=== PATIENT | female | born 1965 | race Caucasian/White ===

== ENCOUNTER 2016-10-29 14:49 | Emergency (ER) | payer OTHER ==
[2016-10-29 15:31] LABS: BASO # 0.2 K/mm3 (0.0-0.2); EOS # 0.4 K/mm3 (0.0-0.50); EOS % 4.6 % (0.0-3.0); LARGE UNSTAINED CELL # 0.1 K/mm3 (0.0-0.4); LARGE UNSTAINED CELL % 1.6 % (0.0-4.0); LYMPH # 2.4 K/mm3 (1.5-4.5); LYMPH % 29.7 % (24.0-44.0); MEAN CORPUSCULAR HEMOGLOBIN 31.2 pg (27.0-33.0); MEAN CORPUSCULAR HGB CONC 32.5 g/dl (32.0-36.5); MONO # 0.4 K/mm3 (0.0-0.8); NEUTROPHILS # 4.3 K/mm3 (1.8-7.7); NEUTROPHILS % 57.1 % (36.0-66.0); PLATELET COUNT, AUTOMATED 221 k/mm3 (150-450); RED CELL DISTRIBUTION WIDTH 13.3 % (11.5-14.5); WHITE BLOOD COUNT 7.6 K/mm3 (4.0-10.0)
[2016-10-29] MEDS ORDERED: ASPIRIN 81 MG CHEW TABLET As Ordered ONE (15:35)
[2016-10-29 16:00] LABS: ANION GAP 8 MEQ/L (8-16); BLOOD UREA NITROGEN 16 MG/DL (7-18); CALCIUM LEVEL 8.5 MG/DL (8.5-10.1); CARBON DIOXIDE LEVEL 23 MEQ/L (21-32); CHLORIDE LEVEL 113 MEQ/L (98-107); CREATININE FOR GFR 0.96 MG/DL (0.55-1.02); GLOMERULAR FILTRATION RATE > 60.0 (>58); GLUCOSE, FASTING 90 MG/DL (70-105); PHOSPHORUS LEVEL 2.7 MG/DL (2.5-4.9); SODIUM LEVEL 144 MEQ/L (136-145)
--- NOTE | 2016-10-29 17:08 | REP ---
Portable chest, single AP view, the patient upright: There are no comparisons. The lung mcnamara are clear. Cardiac size is normal. The hali, mediastinum, and bony thorax are unremarkable. Impression: Essentially negative portable chest. Signed by Blanco Ramirez MD 10/29/2016 04:59 P
--- NOTE | 2016-10-29 21:57 | EDDOCDS ---
Physician Documentation [facility] Name: Cecy Ramos Age: 51 yrs Sex: Female : 1965 Arrival Date: 10/29/2016 Time: 14:49 Bed 4 Private MD: Magdiel Bacon Disposition: 10/29/16 21:46 Discharged to Home/Self Care. Impression: Palpitations. - Condition is Stable. - Medication Reconciliation, Local Pharmacy Hours form. - Follow up: Magdiel Bacon; When: Call to arrange an appointment; Reason: Recheck today's complaints. - Problem is chronic. - Symptoms have improved. Historical: - Allergies: no known allergies; - Home Meds: 1. aspirin 325 mg Oral tab 1 tab PRN for pain (Last dose: 10/28/2016 23:00) 2. Cartia XT 180 mg Oral cp24 1 cap once daily (Last dose: 10/29/2016 13:30) - PMHx: Heart Murmur; tachycardia; - PSHx: laproscopy; - Social history: Smoking status: Patient states was never smoker of tobacco. No barriers to communication noted, The patient speaks fluent Spanish. - Family history: Not pertinent. - : The pt / caregiver states he / she is not on anticoagulants. Home medication list is obtained from the patient. - Exposure Risk Screening:: nova scot[place] christopher last night. 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 10 in. (177.80 cm) (R); Pain 8/10; 15:13 BP 125 / 58 (auto/); ld5 15:13 Pulse 90 MON; Pulse Ox 99% ; ld5 15:28 BP 122 / 58 (auto/); js13 15:28 Pulse 92 MON; Resp 16; Pulse Ox 97% on R/A; js13 15:34 Temp 97.6(O); ar3 15:43 BP 117 / 61 (auto/); js13 15:43 Pulse 96 MON; Resp 16; Pulse Ox 96% on R/A; js13 15:58 BP 132 / 62 (auto/); js13 15:58 Pulse 90 MON; Resp 16; Pulse Ox 97% on R/A; js13 16:13 BP 120 / 76 (auto/); js13 16:13 Pulse 88 MON; Resp 16; Pulse Ox 96% on R/A; js13 16:28 BP 120 / 58 (auto/); js13 16:28 Pulse 90 MON; Resp 16; Pulse Ox 96% on R/A; js13 16:43 BP 120 / 59 (auto/); js13 16:43 Pulse 84 MON; Resp 16; Pulse Ox 96% on R/A; js13 16:58 BP 112 / 67 (auto/); js13 16:58 Pulse 90 MON; Resp 16; Pulse Ox 99% on R/A; js13 17:13 BP 106 / 67 (auto/); js13 17:13 Pulse 90 MON; Resp 16; Pulse Ox 100% on R/A; js13 17:28 BP 117 / 76 (auto/); js13 17:28 Pulse 86 MON; Resp 16; Pulse Ox 98% on R/A; js13 17:43 BP 113 / 57 (auto/); js13 17:43 Pulse 84 MON; Resp 16; Pulse Ox 96% on R/A; js13 17:58 BP 120 / 67 (auto/); js13 17:58 Pulse 84 MON; Resp 16; Pulse Ox 98% on R/A; js13 19:58 BP 125 / 74 (auto/); jo3 19:58 Pulse 76 MON; Pulse Ox 96% ; jo3 20:13 BP 129 / 65 (auto/); jo3 20:13 Pulse 74 MON; Pulse Ox 95% ; jo3 20:28 BP 129 / 69 (auto/); jo3 20:28 Pulse 76 MON; Pulse Ox 95% ; jo3 20:43 BP 129 / 62 (auto/); jo3 20:43 Pulse 74 MON; Pulse Ox 97% ; jo3 20:58 BP 121 / 58 (auto/); jo3 20:58 Pulse 78 MON; Pulse Ox 96% ; jo3 21:13 BP 128 / 70 (auto/); mcp 21:13 Pulse 74 MON; Pulse Ox 97% ; mcp 21:28 BP 124 / 69 (auto/); mcp 21:28 Pulse 72 MON; Pulse Ox 97% ; mcp 21:43 BP 125 / 70 (auto/); mcp 21:43 Pulse 76 MON; Pulse Ox 96% ; mcp 21:53 BP 126 / 75; Pulse 85; Resp 18; Temp 99.1(TE); Pulse Ox 99% on R/A; Pain 1/10; macie 14:51 Body Mass Index 31.57 (99.79 kg, 177.80 cm) mt4 MDM: 14:52 ECG WITH READING ER PHYS+CARDIAG ordered. EDMS 15:00 Seismograph Observer/Pulse Ox/q 30 min VS ordered. fg 15:00 IV Saline Lock ordered. fg 15:00 Rhythm Strip to chart ordered. fg 15:00 Undress patient appropriately for examination ordered. fg 15:00 Aspirin 324 mg PO once ordered. fg 15:01 B-Type Natiuretic Peptide Ordered. EDMS 15:01 Basic Metabolic Profile Ordered. EDMS 15:01 CBC with Diff Ordered. EDMS 15:01 Cardiac Injury Profile Ordered. EDMS 15:01 Troponin Ordered. EDMS 15:02 portable chest Ordered. EDMS 15:07 Oral Temp ordered. br1 15:23 Repeat EKG (put time details section) ordered. br1 15:30 Repeat EKG (put time details section) complete. ar3 15:32 ECG WITH READING ER PHYS ordered. EDMS 15:32 FT4&TSH PANEL Ordered. EDMS 15:32 MAGNESIUM LEVEL Ordered. EDMS 15:32 PHOSPHOROUS LEVEL Ordered. EDMS 16:02 Financial registration complete. gjb 16:03 [facility] Payment Agreement was scanned into [employer] and attached to record. gjb 18:19 Basic Metabolic Profile Reviewed. br1 18:19 CBC with Diff Reviewed. br1 18:19 FT4&TSH PANEL Reviewed. br1 18:19 B-Type Natiuretic Peptide Reviewed. br1 18:19 Cardiac Injury Profile Reviewed. br1 18:19 Troponin Reviewed. br1 18:19 MAGNESIUM LEVEL Reviewed. br1 18:19 PHOSPHOROUS LEVEL Reviewed. br1 18:19 portable chest Reviewed. br1 18:21 Repeat EKG (put time details section) ordered. br1 18:21 Redraw CIP &Troponin (put time in details section) ordered. br1 18:30 Redraw CIP &Troponin (put time in details section) complete. ar3 18:30 Repeat EKG (put time details section) complete. ar3 18:31 ECG WITH READING ER PHYS ordered. EDMS 18:32 CARDIAC MARKER PANEL Ordered. EDMS Administered Medications: 15:23 CANCELLED (Other Intervention Used): NS 0.9% 500 ml IV at bolus once br1 15:35 Drug: Aspirin 324 mg [aspirin 81 mg chewable tablet (4 tabs)] Route: PO; js13 Signatures: Dispatcher [employer] Arlene Lackey, RN RN [facility] Bhupinder Ennis MD MD br1 Nyasia Pacheco, RESEARCH ARCHAEOLOGIST RESEARCH ARCHAEOLOGIST ar3 Keila Cali,RN RN js13 Tae Antonio, DO cs11 Tina Boone MD MD fg Nathan MichaelsRN RN lea3 Aixa Dunn The chart was reviewed and I authenticate all verbal orders and agree with the evaluation and treatment provided.Corrections: (The following items were deleted from the chart) 15:23 15:00 NS 0.9% 500 ml IV at bolus once ordered. fg br1 15:32 15:24 MAGNESIUM LEVEL+LAB ordered. EDMS EDMS 15:32 15:24 PHOSPHOROUS LEVEL+LAB ordered. EDMS EDMS 15:32 15:24 FT4&TSH PANEL+LAB ordered. EDMS EDMS Attachments: 16:03 [facility] Payment Agreement marbella MTDD
--- NOTE | 2016-10-29 21:58 | EDDOCDS ---
Nurse's Notes [facility] Name: Cecy Ramos Age: 51 yrs Sex: Female : 1965 Arrival Date: 10/29/2016 Time: 14:49 Bed 4 Private MD: Magdiel Bacon Diagnosis: Palpitations Presentation: 10/29 14:55 Presenting complaint: Patient states: SOB with CP palpitations that started suddenly jf3 today at approx 1315. Chest tightness with heaviness for a couple days now. Aspirin was not taken prior to arrival. Adult Sepsis Screening: The patient does not have new or worsening altered mentation. Patient has a respiratory rate of greater than or equal to 22 (1 point). Systolic blood pressure is greater than 100. Patient has a qSOFA score of 1- Negative Sepsis Screen. Suicide/Homicide risk assessment- the patient denies having any suicidal and/or homicidal ideations and does not present with any other emotional, behavioral or mental health complaints. Status: Patient is not a director of cloud services or dependent. Transition of care: patient was not received from another setting of care. 14:55 Acuity: DONOVAN Level 2 jf3 14:55 Method Of Arrival: Walkin/Carried/Asstd jf3 Triage Assessment: 15:01 General: Appears uncomfortable, Behavior is cooperative. Pain: Location: mid-sternal jf3 area Pain currently is 4 out of 10 on a pain scale. Pt Declines HIV testing. The patient is triaged at the bedside. See Assessment in Nurses Notes section of ED record. Cardiovascular: Chest pain is described as mild, radiates Does not radiate. episodes are intermittent began 2 hours prior to arrival. 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 aspirin 325 mg Oral tab 1 tab PRN for pain (Last dose: 10/28/2016 23:00) 2. Cartia XT 180 mg Oral cp24 1 cap once daily (Last dose: 10/29/2016 13:30) - PMHx: Heart Murmur; tachycardia; - PSHx: laproscopy; - Social history: Smoking status: Patient states was never smoker of tobacco. No barriers to communication noted, The patient speaks fluent Senegalese. - Family history: Not pertinent. - : The pt / caregiver states he / she is not on anticoagulants. Home medication list is obtained from the patient. - Exposure Risk Screening:: [place] christopher last night. Screenin:01 Screening information is obtained from the patient. Fall risk: No risks identified. js13 Assistance ADL's: requires no assistance with activities of daily living. Abuse/DV Screen: The patient / caregiver reports he/she is: not in a situation that causes fear, pain or injury. Nutritional screening: No deficits noted. Advance Directives: There is no active DNR order. home support is adequate. Assessment: 16:01 General: Appears in no apparent distress, Behavior is appropriate for age, cooperative. js13 Pain: Denies pain. Neurological: Level of Consciousness is awake, alert. Cardiovascular: Rhythm is sinus rhythm Chest pain is denied. Respiratory: Airway is patent Respiratory effort is even, unlabored, Respiratory pattern is regular, symmetrical. Derm: Skin is pink, warm & dry. 16:52 General: Appears in no apparent distress, Behavior is appropriate for age, cooperative. js13 Pain: Denies pain. Neurological: Level of Consciousness is awake, alert. Cardiovascular: Rhythm is sinus rhythm Chest pain is described as mild, Pain is 3 out of 10 on a pain scale. Respiratory: Airway is patent Respiratory effort is even, unlabored, Respiratory pattern is regular, symmetrical. Derm: Skin is pink, warm & dry. 17:48 Adult Sepsis Screening: The patient does not have new or worsening altered mentation. js13 Patient's respiratory rate is less than 22. Systolic blood pressure is greater than 100. Patient has a qSOFA score of 0- Negative Sepsis Screen. General: Appears in no apparent distress, Behavior is appropriate for age, cooperative. Pain: Denies pain. Neurological: Level of Consciousness is awake, alert. Cardiovascular: Rhythm is sinus rhythm Chest pain is described as mild, Pain is 3 out of 10 on a pain scale. Respiratory: No deficits noted. Airway is patent Respiratory effort is even, unlabored, Respiratory pattern is regular, symmetrical. Derm: Skin is pink, warm & dry. 18:09 General: Appears in no apparent distress, Behavior is appropriate for age, cooperative. js13 Pain: Denies pain. Neurological: Level of Consciousness is awake, alert. Cardiovascular: Rhythm is sinus rhythm Chest pain is denied. Respiratory: No deficits noted. Airway is patent Respiratory effort is even, unlabored, Respiratory pattern is regular, symmetrical. Derm: Skin is pink, warm & dry. 19:00 General: Appears in no apparent distress, comfortable, Behavior is appropriate for age, jo3 cooperative, pleasant. Neurological: No deficits noted. Level of Consciousness is awake, alert, Oriented to person, place, time. 21:00 General: Appears in no apparent distress, Behavior is cooperative. Neurological: No mcp deficits noted. Respiratory: Airway is patent Respiratory effort is even, unlabored. Derm: Skin is pink, warm & dry. 21:54 General: Appears in no apparent distress, comfortable, Behavior is cooperative. Pain: mcp Location: chest Pain currently is 2 out of 10 on a pain scale. Neurological: No deficits noted. Cardiovascular: Rhythm is sinus rhythm No ectopy. Respiratory: Airway is patent Respiratory effort is even, unlabored. Derm: Skin is pink, warm & dry. Vital Signs: 14:51 BP 116 / 68; Pulse 168 RA; Resp 22 S; Pulse Ox 100% on R/A; Weight 99.79 kg (R); Height mt4 5 ft. 10 in. (177.80 cm) (R); Pain 8/10; 15:13 BP 125 / 58 (auto/); ld5 15:13 Pulse 90 MON; Pulse Ox 99% ; ld5 15:28 BP 122 / 58 (auto/); js13 15:28 Pulse 92 MON; Resp 16; Pulse Ox 97% on R/A; js13 15:34 Temp 97.6(O); ar3 15:43 BP 117 / 61 (auto/); js13 15:43 Pulse 96 MON; Resp 16; Pulse Ox 96% on R/A; js13 15:58 BP 132 / 62 (auto/); js13 15:58 Pulse 90 MON; Resp 16; Pulse Ox 97% on R/A; js13 16:13 BP 120 / 76 (auto/); js13 16:13 Pulse 88 MON; Resp 16; Pulse Ox 96% on R/A; js13 16:28 BP 120 / 58 (auto/); js13 16:28 Pulse 90 MON; Resp 16; Pulse Ox 96% on R/A; js13 16:43 BP 120 / 59 (auto/); js13 16:43 Pulse 84 MON; Resp 16; Pulse Ox 96% on R/A; js13 16:58 BP 112 / 67 (auto/); js13 16:58 Pulse 90 MON; Resp 16; Pulse Ox 99% on R/A; js13 17:13 BP 106 / 67 (auto/); js13 17:13 Pulse 90 MON; Resp 16; Pulse Ox 100% on R/A; js13 17:28 BP 117 / 76 (auto/); js13 17:28 Pulse 86 MON; Resp 16; Pulse Ox 98% on R/A; js13 17:43 BP 113 / 57 (auto/); js13 17:43 Pulse 84 MON; Resp 16; Pulse Ox 96% on R/A; js13 17:58 BP 120 / 67 (auto/); js13 17:58 Pulse 84 MON; Resp 16; Pulse Ox 98% on R/A; js13 19:58 BP 125 / 74 (auto/); jo3 19:58 Pulse 76 MON; Pulse Ox 96% ; jo3 20:13 BP 129 / 65 (auto/); jo3 20:13 Pulse 74 MON; Pulse Ox 95% ; jo3 20:28 BP 129 / 69 (auto/); jo3 20:28 Pulse 76 MON; Pulse Ox 95% ; jo3 20:43 BP 129 / 62 (auto/); jo3 20:43 Pulse 74 MON; Pulse Ox 97% ; jo3 20:58 BP 121 / 58 (auto/); jo3 20:58 Pulse 78 MON; Pulse Ox 96% ; jo3 21:13 BP 128 / 70 (auto/); mcp 21:13 Pulse 74 MON; Pulse Ox 97% ; mcp 21:28 BP 124 / 69 (auto/); mcp 21:28 Pulse 72 MON; Pulse Ox 97% ; mcp 21:43 BP 125 / 70 (auto/); mcp 21:43 Pulse 76 MON; Pulse Ox 96% ; mcp 21:53 BP 126 / 75; Pulse 85; Resp 18; Temp 99.1(TE); Pulse Ox 99% on R/A; Pain 1/10; macie 14:51 Body Mass Index 31.57 (99.79 kg, 177.80 cm) mt4 Vitals: 14:51 Log In Time: October 29, 2016 at 14:49. RN notified that patient meets Red Flag mt4 criteria. ED Course: 14:50 Patient visited by Whitney Thomason. mt4 14:50 Patient moved to Waiting mt4 14:51 Magdiel Bacon is Private Physician. mt4 14:52 Keila Cali,RN is Primary Nurse. jc4 14:52 Patient moved to 4 jc4 14:57 Triage Initiated jf3 14:57 EKG done. (by ED staff). Reviewed by Tina Boone MD. rs6 15:05 Bhupinder Ennis MD is Attending Physician. br1 15:08 Patient visited by Kimberli Tobin PCA. rs6 15:23 Patient visited by Bhupinder Ennis MD. br1 15:28 Patient visited by Tahira Longoria RN. ld5 15:28 B-Type Natiuretic Peptide Sent. ld5 15:28 Basic Metabolic Profile Sent. ld5 15:28 CBC with Diff Sent. ld5 15:28 Cardiac Injury Profile Sent. ld5 15:28 Troponin Sent. ld5 15:28 Inserted saline lock: 20 gauge in right antecubital area and blood collected. The ld5 patient tolerated the procedure well. Labs drawn. (by ED staff). Sent per order to lab. 15:33 Patient visited by Nyasia Pacheco PCA. ar3 15:33 EKG done. (by ED staff). Reviewed by Bhupinder Ennis MD. ar3 15:35 Patient visited by Nyasia Pacheco PCA. ar3 15:35 PHOSPHOROUS LEVEL Sent. js13 15:35 MAGNESIUM LEVEL Sent. js13 15:35 FT4&TSH PANEL Sent. js13 16:01 The patient / caregiver is instructed regarding the plan of care and ED course. Placed js13 in gown. Bed in low position. Call light in reach. Side rails up X2. hospital monitor on. Pulse ox on. NIBP on. 16:01 No procedures done that require assistance. js13 16:02 Patient visited by Keila Cali RN. js13 16:03 [facility] [place] Agreement was scanned into [employer] and attached to record. b 16:10 Patient name changed from Cecy\S\Fanta\S\Weiskotten\S\ to Cecy\S\ \S\Weiskotten. EDMS 16:53 Patient visited by Keila Cali RN. js13 17:44 portable chest Returned. EDMS 17:50 Patient visited by Keila Cali RN. js13 18:09 Patient visited by Keila Cali RN. js13 19:24 Patient visited by Kasie Rodrigues PCA. macie 19:37 Attending Physician role handed off by Bhupinder Ennis MD cs11 19:37 Tae Antonio DO is Attending Physician. cs11 19:56 Primary Nurse role handed off by Keila Cali RN macie 20:38 Patient visited by Kasie Rodrigues PCA. macie 21:07 Patient visited by Kasie Rodrigues PCA. macie 21:07 EKG done. (by ED staff). Reviewed by Tae Antonio DO. macie 21:10 Patient visited by Keila Garcia RN. jo3 21:46 Magdiel Bacon is Referral Physician. cs11 21:53 Patient visited by Kasie Rodrigues PCA. macie 21:55 Discontinued lock intact, bleeding controlled, pressure dressing applied, No mcp redness/swelling at site. Administered Medications: 15:23 CANCELLED (Other Intervention Used): NS 0.9% 500 ml IV at bolus once br1 15:35 Drug: Aspirin 324 mg [aspirin 81 mg chewable tablet (4 tabs)] Route: PO; js13 Order Results: Lab Order: B-Type Natiuretic Peptide; SPEC'M 10/29/16 15:26 Test: BRAIN NATRIURETIC PEPTIDE; Value: 57.4; Range: <100; Units: PG/ML; Status: F Lab Order: Basic Metabolic Profile; SPEC'M 10/29/16 15:26 Test: GLUCOSE, FASTING; Value: 90; Range: 70-105; Units: MG/DL; Status: F Test: BLOOD UREA NITROGEN; Value: 16; Range: 7-18; Units: MG/DL; Status: F Test: CREATININE FOR GFR; Value: 0.96; Range: 0.55-1.02; Units: MG/DL; Status: F Test: GLOMERULAR FILTRATION RATE; Value: > 60.0; Range: >58; Status: F Test: SODIUM LEVEL; Value: 144; Range: 136-145; Units: MEQ/L; Status: F Test: POTASSIUM SERUM; Value: 4.0; Range: 3.5-5.1; Units: MEQ/L; Status: F Test: CHLORIDE LEVEL; Value: 113; Range: 98-107; Abnormal: Above high normal; Units: MEQ/L; Status: F Test: CARBON DIOXIDE LEVEL; Value: 23; Range: 21-32; Units: MEQ/L; Status: F Test: ANION GAP; Value: 8; Range: 8-16; Units: MEQ/L; Status: F Test: CALCIUM LEVEL; Value: 8.5; Range: 8.5-10.1; Units: MG/DL; Status: F Test Note: ; Units are mL/min/1.73 m2 Chronic Kidney Disease Staging per NKF: Stage I & II GFR >=60 Normal to Mildly Decreased Stage III GFR 30-59 Moderately Decreased Stage IV GFR 15-29 Severely Decreased Stage V GFR <15 Very Little GFR Left ESRD GFR <15 on MARKER MACHINE Lab Order: CBC with Diff; SPEC'M 10/29/16 15:26 Test: WHITE BLOOD COUNT; Value: 7.6; Range: 4.0-10.0; Units: K/mm3; Status: F Test: RED BLOOD COUNT; Value: 4.38; Range: 4.00-5.40; Units: M/mm3; Status: F Test: HEMOGLOBIN; Value: 13.7; Range: 12.0-16.0; Units: g/dl; Status: F Test: HEMATOCRIT; Value: 42.1; Range: 36.0-47.0; Units: %; Status: F Test: MEAN CORPUSCULAR VOLUME; Value: 96.0; Range: 80.0-96.0; Units: fl; Status: F Test: MEAN CORPUSCULAR HEMOGLOBIN; Value: 31.2; Range: 27.0-33.0; Units: pg; Status: F Test: MEAN CORPUSCULAR HGB CONC; Value: 32.5; Range: 32.0-36.5; Units: g/dl; Status: F Test: RED CELL DISTRIBUTION WIDTH; Value: 13.3; Range: 11.5-14.5; Units: %; Status: F Test: PLATELET COUNT, AUTOMATED; Value: 221; Range: 150-450; Units: k/mm3; Status: F Test: NEUTROPHILS %; Value: 57.1; Range: 36.0-66.0; Units: %; Status: F Test: LYMPH %; Value: 29.7; Range: 24.0-44.0; Units: %; Status: F Test: MONO %; Value: 5.0; Range: 0.0-5.0; Units: %; Status: F Test: EOS %; Value: 4.6; Range: 0.0-3.0; Abnormal: Above high normal; Units: %; Status: F Test: BASO %; Value: 2.0; Range: 0.0-1.0; Abnormal: Above high normal; Units: %; Status: F Test: LARGE UNSTAINED CELL %; Value: 1.6; Range: 0.0-4.0; Units: %; Status: F Test: NEUTROPHILS #; Value: 4.3; Range: 1.8-7.7; Units: K/mm3; Status: F Test: LYMPH #; Value: 2.4; Range: 1.5-4.5; Units: K/mm3; Status: F Test: MONO #; Value: 0.4; Range: 0.0-0.8; Units: K/mm3; Status: F Test: EOS #; Value: 0.4; Range: 0.0-0.50; Units: K/mm3; Status: F Test: BASO #; Value: 0.2; Range: 0.0-0.2; Units: K/mm3; Status: F Test: LARGE UNSTAINED CELL #; Value: 0.1; Range: 0.0-0.4; Units: K/mm3; Status: F Lab Order: Cardiac Injury Profile; SPEC'M 10/29/16 15:26 Test: CPK CREATINE PHOSPHOKINASE; Value: 64; Range: 26-192; Units: U/L; Status: F Test: CK-MB VALUE MASS; Value: 1.0; Range: 0.0-3.6; Units: NG/ML; Status: F Test: MB/CK RELATIVE INDEX; Value: 1.56; Range: < OR =4; Status: F Test Note: ; DIAGNOSIS CRITERIA MMB ng/ml Relative Index (RI) NON-AMI < or = 5 N/A STACK ZONE > 5 < or = 4 AMI > 5 > 4 Lab Order: Troponin; SPEC'M 10/29/16 15:26 Test: TROPONIN I; Value: < 0.02; Range: < 0.10; Units: NG/ML; Status: F Test Note: ; Troponin I Reference Interval for [facility] LOCI: 99th Percentile= 0.00-0.045 ng/ml Risk Stratification: <= 0.10 ng/ml Decreased Risk for Adverse Clinical Events. 0.10-1.50 ng/ml Increased Risk for Adverse Clinical Events. Evaluation of additional criterion and/or repeat testing in 2-6 hours is suggested to rule out myocardial damage. >= 1.50 ng/ml Indicative of Myocardial Injury. Lab Order: FT4&TSH PANEL; [facility] 10/29/16 15:26 Test: THYROID STIMULATING HORMONE; Value: 4.680; Range: 0.358-3.740; Abnormal: Above high normal; Units: uIU/ML; Status: F Test: FREE T4; Value: 0.80; Range: 0.76-1.46; Units: NG/DL; Status: F Lab Order: MAGNESIUM LEVEL; [facility] 10/29/16 15:26 Test: MAGNESIUM LEVEL; Value: 2.0; Range: 1.8-2.4; Units: MG/DL; Status: F Lab Order: PHOSPHOROUS LEVEL; [facility] 10/29/16 15:26 Test: PHOSPHORUS LEVEL; Value: 2.7; Range: 2.5-4.9; Units: MG/DL; Status: F Lab Order: CARDIAC MARKER PANEL; [facility] 10/29/16 20:53 Test: CPK CREATINE PHOSPHOKINASE; Value: 53; Range: 26-192; Units: U/L; Status: F Test: CK-MB VALUE MASS; Value: 1.0; Range: 0.0-3.6; Units: NG/ML; Status: F Test: MB/CK RELATIVE INDEX; Value: 1.88; Range: < OR =4; Status: F Test: TROPONIN I; Value: < 0.02; Range: < 0.10; Units: NG/ML; Status: F Test Note: ; DIAGNOSIS CRITERIA MMB ng/ml Relative Index (RI) NON-AMI < or = 5 N/A STACK ZONE > 5 < or = 4 AMI > 5 > 4 Radiology Order: portable chest Test: portable chest REASON FOR EXAMINATION: Chest Pain; Portable chest, single AP view, the patient upright:; ; There are no comparisons.; ; The lung mcnamara are clear. Cardiac size is normal. The hali, mediastinum, and; bony thorax are unremarkable.; ; Impression:; ; Essentially negative portable chest.; ; ; Signed by; Blanco Ramirez MD 10/29/2016 04:59 P; Outcome: 21:46 Discharge ordered by Provider. [facility] 21:56 Discharge Assessment: patient administered narcotics - no. The following High Risk [facility] Discharge criteria are identified: None. Discharged to home ambulatory, with significant other. Condition: stable. Discharge instructions given to patient, Instructed on discharge instructions, follow up and referral plans. Demonstrated understanding of instructions, Pt was receptive of discharge instructions/ teaching. No special radiology studies were completed. Property sent home with patient. 21:56 Patient left the ED. [facility] Signatures: Dispatcher [employer] EDArlene Sena RN RN [facility] Keila GarciaRN JAXON [email or web address] Bhupinder Ennis MD MD br1 Whitney Thomason mt4 Nyasia Pacheco, INVESTIGATIVE ANALYST INVESTIGATIVE ANALYST ar3 Tahira Longoria RN RN ld5 Keila Roberts, RN RN jc4 Kasie Rodrigues, INVESTIGATIVE ANALYST INVESTIGATIVE ANALYST macie Keila Cali,RN RN js13 Tae Antonio, DO cs11 Kimberli Tobin, INVESTIGATIVE ANALYST INVESTIGATIVE ANALYST rs6 Nathan Michaels,RN RN jf3 Aixa Dunn Corrections: (The following items were deleted from the chart) 15:32 15:27 FT4&TSH PANEL+LAB sent. 5 EDME 15:32 15:27 PHOSPHOROUS LEVEL+LAB sent. 5 EDMS 15:32 15:27 MAGNESIUM LEVEL+LAB sent. [facility] EDMS 19:00 16:52 Cardiovascular: Rhythm is sinus rhythm Chest pain is denied js13 js13 19:00 17:48 Cardiovascular: Rhythm is sinus rhythm Chest pain is denied js13 js MTDD
--- NOTE | 2016-10-30 13:06 | ECGEPIP ---
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
--- NOTE | 2016-10-30 13:12 | ECGEPIP ---
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
--- NOTE | 2016-10-30 13:13 | ECGEPIP ---
Stationary ECG Study [facility] - ED Test Date: 2016-10-29 Pat Name: DAXA YIN Department: Room: - Gender: F Unix Developer: lenin : 1965 Requested By: ROSANNA Blanco Order Number: [id number] Reading MD: Nicole England Measurements Intervals [place] Rate: 138 P: 59 NE: 88 QRS: -12 QRSD: 100 T: 57 QT: 270 QTc: 409 Interpretive Statements NARROW COMPLEX TACHYCARDIA: ATRIAL FLUTTER, SINUS TACHYCARDIA WITH SHORT NE INTERVAL, SVT ABNORMAL RHYTHM ECG Electronically Signed On 10-30-2016 13:13:26 EST by Nicole England
--- NOTE | 2016-10-31 22:57 | EDDOCDS ---
Physician Documentation [facility] Name: Cecy Ramos Age: 51 yrs Sex: Female : 1965 Arrival Date: 10/29/2016 Time: 14:49 Bed 4 Private MD: Magdiel Bacon Disposition: 10/29/16 21:46 Discharged to Home/Self Care. Impression: Palpitations. - Condition is Stable. - Medication Reconciliation, Local Pharmacy Hours form. - Follow up: Magdiel Bacon; When: Call to arrange an appointment; Reason: Recheck today's complaints. - Problem is chronic. - Symptoms have improved. Historical: - Allergies: no known allergies; - Home Meds: 1. aspirin 325 mg Oral tab 1 tab PRN for pain (Last dose: 10/28/2016 23:00) 2. Cartia XT 180 mg Oral cp24 1 cap once daily (Last dose: 10/29/2016 13:30) - PMHx: Heart Murmur; tachycardia; - PSHx: laproscopy; - Social history: Smoking status: Patient states was never smoker of tobacco. No barriers to communication noted, The patient speaks fluent Kinyarwanda. - Family history: Not pertinent. - : The pt / caregiver states he / she is not on anticoagulants. Home medication list is obtained from the patient. - Exposure Risk Screening:: [place] christ[place] last night. 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 10 in. (177.80 cm) (R); Pain 8/10; 15:13 BP 125 / 58 (auto/); ld5 15:13 Pulse 90 MON; Pulse Ox 99% ; ld5 15:28 BP 122 / 58 (auto/); js13 15:28 Pulse 92 MON; Resp 16; Pulse Ox 97% on R/A; js13 15:34 Temp 97.6(O); ar3 15:43 BP 117 / 61 (auto/); js13 15:43 Pulse 96 MON; Resp 16; Pulse Ox 96% on R/A; js13 15:58 BP 132 / 62 (auto/); js13 15:58 Pulse 90 MON; Resp 16; Pulse Ox 97% on R/A; js13 16:13 BP 120 / 76 (auto/); js13 16:13 Pulse 88 MON; Resp 16; Pulse Ox 96% on R/A; js13 16:28 BP 120 / 58 (auto/); js13 16:28 Pulse 90 MON; Resp 16; Pulse Ox 96% on R/A; js13 16:43 BP 120 / 59 (auto/); js13 16:43 Pulse 84 MON; Resp 16; Pulse Ox 96% on R/A; js13 16:58 BP 112 / 67 (auto/); js13 16:58 Pulse 90 MON; Resp 16; Pulse Ox 99% on R/A; js13 17:13 BP 106 / 67 (auto/); js13 17:13 Pulse 90 MON; Resp 16; Pulse Ox 100% on R/A; js13 17:28 BP 117 / 76 (auto/); js13 17:28 Pulse 86 MON; Resp 16; Pulse Ox 98% on R/A; js13 17:43 BP 113 / 57 (auto/); js13 17:43 Pulse 84 MON; Resp 16; Pulse Ox 96% on R/A; js13 17:58 BP 120 / 67 (auto/); js13 17:58 Pulse 84 MON; Resp 16; Pulse Ox 98% on R/A; js13 19:58 BP 125 / 74 (auto/); jo3 19:58 Pulse 76 MON; Pulse Ox 96% ; jo3 20:13 BP 129 / 65 (auto/); jo3 20:13 Pulse 74 MON; Pulse Ox 95% ; jo3 20:28 BP 129 / 69 (auto/); jo3 20:28 Pulse 76 MON; Pulse Ox 95% ; jo3 20:43 BP 129 / 62 (auto/); jo3 20:43 Pulse 74 MON; Pulse Ox 97% ; jo3 20:58 BP 121 / 58 (auto/); jo3 20:58 Pulse 78 MON; Pulse Ox 96% ; jo3 21:13 BP 128 / 70 (auto/); mcp 21:13 Pulse 74 MON; Pulse Ox 97% ; mcp 21:28 BP 124 / 69 (auto/); mcp 21:28 Pulse 72 MON; Pulse Ox 97% ; mcp 21:43 BP 125 / 70 (auto/); mcp 21:43 Pulse 76 MON; Pulse Ox 96% ; mcp 21:53 BP 126 / 75; Pulse 85; Resp 18; Temp 99.1(TE); Pulse Ox 99% on R/A; Pain 1/10; macie 14:51 Body Mass Index 31.57 (99.79 kg, 177.80 cm) mt4 MDM: 14:52 ECG WITH READING ER PHYS+CARDIAG ordered. EDMS 15:00 Grants Specialist/Pulse Ox/q 30 min VS ordered. fg 15:00 IV Saline Lock ordered. fg 15:00 Rhythm Strip to chart ordered. fg 15:00 Undress patient appropriately for examination ordered. fg 15:00 Aspirin 324 mg PO once ordered. fg 15:01 B-Type Natiuretic Peptide Ordered. EDMS 15:01 Basic Metabolic Profile Ordered. EDMS 15:01 CBC with Diff Ordered. EDMS 15:01 Cardiac Injury Profile Ordered. EDMS 15:01 Troponin Ordered. EDMS 15:02 portable chest Ordered. EDMS 15:07 Oral Temp ordered. br1 15:23 Repeat EKG (put time details section) ordered. br1 15:30 Repeat EKG (put time details section) complete. ar3 15:32 ECG WITH READING ER PHYS ordered. EDMS 15:32 FT4&TSH PANEL Ordered. EDMS 15:32 MAGNESIUM LEVEL Ordered. EDMS 15:32 PHOSPHOROUS LEVEL Ordered. EDMS 16:02 Financial registration complete. gjb 16:03 [facility] [place] Payment Agreement was scanned into [employer] and attached to record. gjb 18:19 Basic Metabolic Profile Reviewed. br1 18:19 CBC with Diff Reviewed. br1 18:19 FT4&TSH PANEL Reviewed. br1 18:19 B-Type Natiuretic Peptide Reviewed. br1 18:19 Cardiac Injury Profile Reviewed. br1 18:19 Troponin Reviewed. br1 18:19 MAGNESIUM LEVEL Reviewed. br1 18:19 PHOSPHOROUS LEVEL Reviewed. br1 18:19 portable chest Reviewed. br1 18:21 Repeat EKG (put time details section) ordered. br1 18:21 Redraw CIP &Troponin (put time in details section) ordered. br1 18:30 Redraw CIP &Troponin (put time in details section) complete. ar3 18:30 Repeat EKG (put time details section) complete. ar3 18:31 ECG WITH READING ER PHYS ordered. EDMS 18:32 CARDIAC MARKER PANEL Ordered. EDMS 10/30 17:03 ECG/EKG was scanned into [employer] and attached to record. kf3 18: T-Sheet-- Draft Copy was scanned into [employer] and attached to record. klr Administered Medications: 10/29 15:23 CANCELLED (Other Intervention Used): NS 0.9% 500 ml IV at bolus once br1 15:35 Drug: Aspirin 324 mg [aspirin 81 mg chewable tablet (4 tabs)] Route: PO; js13 Signatures: Dispatcher [employer] EDMS Arlene Carrillo, RN RN mcp Yfn Chong, Reg Reg kf3 Bhupinder Ennis MD MD br1 Nyasia Pacheco, DECKHAND MAINTENANCE DECKHAND MAINTENANCE ar3 Keila CaliRN RN js13 Tae Antonio, DO cs11 Tina Boone MD MD fg Nathan Michaels RN RN jf3 Aixa Dunn Kathie klr The chart was reviewed and I authenticate all verbal orders and agree with the evaluation and treatment provided.Corrections: (The following items were deleted from the chart) 15:23 15:00 NS 0.9% 500 ml IV at bolus once ordered. fg br1 15:32 15:24 MAGNESIUM LEVEL+LAB ordered. EDMS EDMS 15:32 15:24 PHOSPHOROUS LEVEL+LAB ordered. EDMS EDMS 15:32 15:24 FT4&TSH PANEL+LAB ordered. EDMS EDMS Attachments: 16:03 [facility] [place] Payment Agreement gjb 10/30 17:03 ECG/EKG kf3 18:22 T-Sheet-- Draft Copy klr Chart Complete MTDD
--- NOTE | 2016-10-31 22:58 | EDDOCDS ---
[facility] Cecy [facility] Age: 51 yrs Sex: Female : 1965 Arrival Date: 10/29/2016 Time: 14:49 Bed 4 Private MD: Magdiel Bacon Disposition: 10/29/16 21:46 Discharged to Home/Self Care. Impression: Palpitations. - Condition is Stable. - Medication Reconciliation, Local Pharmacy Hours form. - Follow up: Magdiel Bacon; When: Call to arrange an appointment; Reason: Recheck today's complaints. - Problem is chronic. - Symptoms have improved. Historical: - Allergies: no known allergies; - Home Meds: 1. aspirin 325 mg Oral tab 1 tab PRN for pain (Last dose: 10/28/2016 23:00) 2. Cartia XT 180 mg Oral cp24 1 cap once daily (Last dose: 10/29/2016 13:30) - PMHx: Heart Murmur; tachycardia; - PSHx: laproscopy; - Social history: Smoking status: Patient states was never smoker of tobacco. No barriers to communication noted, The patient speaks fluent Irish. - Family history: Not pertinent. - : The pt / caregiver states he / she is not on anticoagulants. Home medication list is obtained from the patient. - Exposure Risk Screening:: [place] christopher last night. 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 10 in. (177.80 cm) (R); Pain 8/10; 15:13 BP 125 / 58 (auto/); ld5 15:13 Pulse 90 MON; Pulse Ox 99% ; ld5 15:28 BP 122 / 58 (auto/); js13 15:28 Pulse 92 MON; Resp 16; Pulse Ox 97% on R/A; js13 15:34 Temp 97.6(O); ar3 15:43 BP 117 / 61 (auto/); js13 15:43 Pulse 96 MON; Resp 16; Pulse Ox 96% on R/A; js13 15:58 BP 132 / 62 (auto/); js13 15:58 Pulse 90 MON; Resp 16; Pulse Ox 97% on R/A; js13 16:13 BP 120 / 76 (auto/); js13 16:13 Pulse 88 MON; Resp 16; Pulse Ox 96% on R/A; js13 16:28 BP 120 / 58 (auto/); js13 16:28 Pulse 90 MON; Resp 16; Pulse Ox 96% on R/A; js13 16:43 BP 120 / 59 (auto/); js13 16:43 Pulse 84 MON; Resp 16; Pulse Ox 96% on R/A; js13 16:58 BP 112 / 67 (auto/); js13 16:58 Pulse 90 MON; Resp 16; Pulse Ox 99% on R/A; js13 17:13 BP 106 / 67 (auto/); js13 17:13 Pulse 90 MON; Resp 16; Pulse Ox 100% on R/A; js13 17:28 BP 117 / 76 (auto/); js13 17:28 Pulse 86 MON; Resp 16; Pulse Ox 98% on R/A; js13 17:43 BP 113 / 57 (auto/); js13 17:43 Pulse 84 MON; Resp 16; Pulse Ox 96% on R/A; js13 17:58 BP 120 / 67 (auto/); js13 17:58 Pulse 84 MON; Resp 16; Pulse Ox 98% on R/A; js13 19:58 BP 125 / 74 (auto/); jo3 19:58 Pulse 76 MON; Pulse Ox 96% ; jo3 20:13 BP 129 / 65 (auto/); jo3 20:13 Pulse 74 MON; Pulse Ox 95% ; jo3 20:28 BP 129 / 69 (auto/); jo3 20:28 Pulse 76 MON; Pulse Ox 95% ; jo3 20:43 BP 129 / 62 (auto/); jo3 20:43 Pulse 74 MON; Pulse Ox 97% ; jo3 20:58 BP 121 / 58 (auto/); jo3 20:58 Pulse 78 MON; Pulse Ox 96% ; jo3 21:13 BP 128 / 70 (auto/); mcp 21:13 Pulse 74 MON; Pulse Ox 97% ; mcp 21:28 BP 124 / 69 (auto/); mcp 21:28 Pulse 72 MON; Pulse Ox 97% ; mcp 21:43 BP 125 / 70 (auto/); mcp 21:43 Pulse 76 MON; Pulse Ox 96% ; mcp 21:53 BP 126 / 75; Pulse 85; Resp 18; Temp 99.1(TE); Pulse Ox 99% on R/A; Pain 1/10; macie 14:51 Body Mass Index 31.57 (99.79 kg, 177.80 cm) mt4 MDM: 14:52 ECG WITH READING ER PHYS+CARDIAG ordered. EDMS 15:00 Senior Design Engineering Specialist/Pulse Ox/q 30 min VS ordered. fg 15:00 IV Saline Lock ordered. fg 15:00 Rhythm Strip to chart ordered. fg 15:00 Undress patient appropriately for examination ordered. fg 15:00 Aspirin 324 mg PO once ordered. fg 15:01 B-Type Natiuretic Peptide Ordered. EDMS 15:01 Basic Metabolic Profile Ordered. EDMS 15:01 CBC with Diff Ordered. EDMS 15:01 Cardiac Injury Profile Ordered. EDMS 15:01 Troponin Ordered. EDMS 15:02 portable chest Ordered. EDMS 15:07 Oral Temp ordered. br1 15:23 Repeat EKG (put time details section) ordered. br1 15:30 Repeat EKG (put time details section) complete. ar3 15:32 ECG WITH READING ER PHYS ordered. EDMS 15:32 FT4&TSH PANEL Ordered. EDMS 15:32 MAGNESIUM LEVEL Ordered. EDMS 15:32 PHOSPHOROUS LEVEL Ordered. EDMS 16:02 Financial registration complete. gjb 16:03 [facility] [place] was scanned into [employer] and attached to record. gjb 18:19 Basic Metabolic Profile Reviewed. br1 18:19 CBC with Diff Reviewed. br1 18:19 FT4&TSH PANEL Reviewed. br1 18:19 B-Type Natiuretic Peptide Reviewed. br1 18:19 Cardiac Injury Profile Reviewed. br1 18:19 Troponin Reviewed. br1 18:19 MAGNESIUM LEVEL Reviewed. br1 18:19 PHOSPHOROUS LEVEL Reviewed. br1 18:19 portable chest Reviewed. br1 18:21 Repeat EKG (put time details section) ordered. br1 18:21 Redraw CIP &Troponin (put time in details section) ordered. br1 18:30 Redraw CIP &Troponin (put time in details section) complete. ar3 18:30 Repeat EKG (put time details section) complete. ar3 18:31 ECG WITH READING ER PHYS ordered. EDMS 18:32 CARDIAC MARKER PANEL Ordered. EDMS 10/30 17:03 ECG/EKG was scanned into [employer] and attached to record. kf3 18: T-Sheet-- Draft Copy was scanned into [employer] and attached to record. klr Administered Medications: 10/29 15:23 CANCELLED (Other Intervention Used): NS 0.9% 500 ml IV at bolus once br1 15:35 Drug: Aspirin 324 mg [aspirin 81 mg chewable tablet (4 tabs)] Route: PO; js13 Signatures: Dispatcher [employer] EDMS Arlene Carrlilo, RN RN mcp Yfn Chong, Reg Reg kf3 Bhupinder Ennis MD MD br1 Nyasia Pacheco, RIVET MACHINE OPERATOR RIVET MACHINE OPERATOR ar3 Keila CaliRN RN js13 Tae Antonio, DO cs11 Tina Boone MD MD fg Nathan Michaels RN RN jf3 Aixa Dunn Kathie klr The chart was reviewed and I authenticate all verbal orders and agree with the evaluation and treatment provided.Corrections: (The following items were deleted from the chart) 15:23 15:00 NS 0.9% 500 ml IV at bolus once ordered. fg br1 15:32 15:24 MAGNESIUM LEVEL+LAB ordered. EDMS EDMS 15:32 15:24 PHOSPHOROUS LEVEL+LAB ordered. EDMS EDMS 15:32 15:24 FT4&TSH PANEL+LAB ordered. EDMS EDMS Attachments: 16:03 [facility] [place] Agreement gjb 10/30 17:03 ECG/EKG kf3 18:22 T-Sheet-- Draft Copy klr Chart Complete MTDD
--- NOTE | 2016-10-31 22:58 | EDDOCDS ---
Nurse's Notes [facility] Name: Cecy Ramos Age: 51 yrs Sex: Female : 1965 Arrival Date: 10/29/2016 Time: 14:49 Bed 4 Private MD: Magdiel Bacon Diagnosis: Palpitations Presentation: 10/29 14:55 Presenting complaint: Patient states: SOB with CP palpitations that started suddenly jf3 today at approx 1315. Chest tightness with heaviness for a couple days now. Aspirin was not taken prior to arrival. Adult Sepsis Screening: The patient does not have new or worsening altered mentation. Patient has a respiratory rate of greater than or equal to 22 (1 point). Systolic blood pressure is greater than 100. Patient has a qSOFA score of 1- Negative Sepsis Screen. Suicide/Homicide risk assessment- the patient denies having any suicidal and/or homicidal ideations and does not present with any other emotional, behavioral or mental health complaints. 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 Transition of care: patient was not received from another setting of care. 14:55 Acuity: DONOVAN Level 2 jf3 14:55 Method Of Arrival: Walkin/Carried/Asstd jf3 Triage Assessment: 15:01 General: Appears uncomfortable, Behavior is cooperative. Pain: Location: mid-sternal jf3 area Pain currently is 4 out of 10 on a pain scale. Pt Declines HIV testing. The patient is triaged at the bedside. See Assessment in Nurses Notes section of ED record. Cardiovascular: Chest pain is described as mild, radiates Does not radiate. episodes are intermittent began 2 hours prior to arrival. 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 aspirin 325 mg Oral tab 1 tab PRN for pain (Last dose: 10/28/2016 23:00) 2. Cartia XT 180 mg Oral cp24 1 cap once daily (Last dose: 10/29/2016 13:30) - PMHx: Heart Murmur; tachycardia; - PSHx: laproscopy; - Social history: Smoking status: Patient states was never smoker of tobacco. No barriers to communication noted, The patient speaks fluent Malay. - Family history: Not pertinent. - : The pt / caregiver states he / she is not on anticoagulants. Home medication list is obtained from the patient. - Exposure Risk Screening:: [place] christopher last night. Screenin:01 Screening information is obtained from the patient. Fall risk: No risks identified. js13 Assistance ADL's: requires no assistance with activities of daily living. Abuse/DV Screen: The patient / caregiver reports he/she is: not in a situation that causes fear, pain or injury. Nutritional screening: No deficits noted. Advance Directives: There is no active DNR order. home support is adequate. Assessment: 16:01 General: Appears in no apparent distress, Behavior is appropriate for age, cooperative. js13 Pain: Denies pain. Neurological: Level of Consciousness is awake, alert. Cardiovascular: Rhythm is sinus rhythm Chest pain is denied. Respiratory: Airway is patent Respiratory effort is even, unlabored, Respiratory pattern is regular, symmetrical. Derm: Skin is pink, warm & dry. 16:52 General: Appears in no apparent distress, Behavior is appropriate for age, cooperative. js13 Pain: Denies pain. Neurological: Level of Consciousness is awake, alert. Cardiovascular: Rhythm is sinus rhythm Chest pain is described as mild, Pain is 3 out of 10 on a pain scale. Respiratory: Airway is patent Respiratory effort is even, unlabored, Respiratory pattern is regular, symmetrical. Derm: Skin is pink, warm & dry. 17:48 Adult Sepsis Screening: The patient does not have new or worsening altered mentation. js13 Patient's respiratory rate is less than 22. Systolic blood pressure is greater than 100. Patient has a qSOFA score of 0- Negative Sepsis Screen. General: Appears in no apparent distress, Behavior is appropriate for age, cooperative. Pain: Denies pain. Neurological: Level of Consciousness is awake, alert. Cardiovascular: Rhythm is sinus rhythm Chest pain is described as mild, Pain is 3 out of 10 on a pain scale. Respiratory: No deficits noted. Airway is patent Respiratory effort is even, unlabored, Respiratory pattern is regular, symmetrical. Derm: Skin is pink, warm & dry. 18:09 General: Appears in no apparent distress, Behavior is appropriate for age, cooperative. js13 Pain: Denies pain. Neurological: Level of Consciousness is awake, alert. Cardiovascular: Rhythm is sinus rhythm Chest pain is denied. Respiratory: No deficits noted. Airway is patent Respiratory effort is even, unlabored, Respiratory pattern is regular, symmetrical. Derm: Skin is pink, warm & dry. 19:00 General: Appears in no apparent distress, comfortable, Behavior is appropriate for age, jo3 cooperative, pleasant. Neurological: No deficits noted. Level of Consciousness is awake, alert, Oriented to person, place, time. 21:00 General: Appears in no apparent distress, Behavior is cooperative. Neurological: No mcp deficits noted. Respiratory: Airway is patent Respiratory effort is even, unlabored. Derm: Skin is pink, warm & dry. 21:54 General: Appears in no apparent distress, comfortable, Behavior is cooperative. Pain: mcp Location: chest Pain currently is 2 out of 10 on a pain scale. Neurological: No deficits noted. Cardiovascular: Rhythm is sinus rhythm No ectopy. Respiratory: Airway is patent Respiratory effort is even, unlabored. Derm: Skin is pink, warm & dry. Vital Signs: 14:51 BP 116 / 68; Pulse 168 RA; Resp 22 S; Pulse Ox 100% on R/A; Weight 99.79 kg (R); Height mt4 5 ft. 10 in. (177.80 cm) (R); Pain 8/10; 15:13 BP 125 / 58 (auto/); ld5 15:13 Pulse 90 MON; Pulse Ox 99% ; ld5 15:28 BP 122 / 58 (auto/); js13 15:28 Pulse 92 MON; Resp 16; Pulse Ox 97% on R/A; js13 15:34 Temp 97.6(O); ar3 15:43 BP 117 / 61 (auto/); js13 15:43 Pulse 96 MON; Resp 16; Pulse Ox 96% on R/A; js13 15:58 BP 132 / 62 (auto/); js13 15:58 Pulse 90 MON; Resp 16; Pulse Ox 97% on R/A; js13 16:13 BP 120 / 76 (auto/); js13 16:13 Pulse 88 MON; Resp 16; Pulse Ox 96% on R/A; js13 16:28 BP 120 / 58 (auto/); js13 16:28 Pulse 90 MON; Resp 16; Pulse Ox 96% on R/A; js13 16:43 BP 120 / 59 (auto/); js13 16:43 Pulse 84 MON; Resp 16; Pulse Ox 96% on R/A; js13 16:58 BP 112 / 67 (auto/); js13 16:58 Pulse 90 MON; Resp 16; Pulse Ox 99% on R/A; js13 17:13 BP 106 / 67 (auto/); js13 17:13 Pulse 90 MON; Resp 16; Pulse Ox 100% on R/A; js13 17:28 BP 117 / 76 (auto/); js13 17:28 Pulse 86 MON; Resp 16; Pulse Ox 98% on R/A; js13 17:43 BP 113 / 57 (auto/); js13 17:43 Pulse 84 MON; Resp 16; Pulse Ox 96% on R/A; js13 17:58 BP 120 / 67 (auto/); js13 17:58 Pulse 84 MON; Resp 16; Pulse Ox 98% on R/A; js13 19:58 BP 125 / 74 (auto/); jo3 19:58 Pulse 76 MON; Pulse Ox 96% ; jo3 20:13 BP 129 / 65 (auto/); jo3 20:13 Pulse 74 MON; Pulse Ox 95% ; jo3 20:28 BP 129 / 69 (auto/); jo3 20:28 Pulse 76 MON; Pulse Ox 95% ; jo3 20:43 BP 129 / 62 (auto/); jo3 20:43 Pulse 74 MON; Pulse Ox 97% ; jo3 20:58 BP 121 / 58 (auto/); jo3 20:58 Pulse 78 MON; Pulse Ox 96% ; jo3 21:13 BP 128 / 70 (auto/); mcp 21:13 Pulse 74 MON; Pulse Ox 97% ; mcp 21:28 BP 124 / 69 (auto/); mcp 21:28 Pulse 72 MON; Pulse Ox 97% ; mcp 21:43 BP 125 / 70 (auto/); mcp 21:43 Pulse 76 MON; Pulse Ox 96% ; mcp 21:53 BP 126 / 75; Pulse 85; Resp 18; Temp 99.1(TE); Pulse Ox 99% on R/A; Pain 1/10; macie 14:51 Body Mass Index 31.57 (99.79 kg, 177.80 cm) mt4 Vitals: 14:51 Log In Time: October 29, 2016 at 14:49. RN notified that patient meets Red Flag mt4 criteria. ED Course: 14:50 Patient visited by Whitney Thomason. mt4 14:50 Patient moved to Waiting mt4 14:51 Magdiel Bacon is Private Physician. mt4 14:52 Keila Cali,RN is Primary Nurse. jc4 14:52 Patient moved to 4 jc4 14:57 Triage Initiated jf3 14:57 EKG done. (by ED staff). Reviewed by Tina Boone MD. rs6 15:05 Rosanna Ennis MD is Attending Physician. br1 15:08 Patient visited by Kimberli Tobin PCA. rs6 15:23 Patient visited by Rosanna Ennis MD. br1 15:28 Patient visited by Tahira Longoria RN. ld5 15:28 B-Type Natiuretic Peptide Sent. ld5 15:28 Basic Metabolic Profile Sent. ld5 15:28 CBC with Diff Sent. ld5 15:28 Cardiac Injury Profile Sent. ld5 15:28 Troponin Sent. ld5 15:28 Inserted saline lock: 20 gauge in right antecubital area and blood collected. The ld5 patient tolerated the procedure well. Labs drawn. (by ED staff). Sent per order to lab. 15:33 Patient visited by Nyasia Pacheco PCA. ar3 15:33 EKG done. (by ED staff). Reviewed by Rosanna Ennis MD. ar3 15:35 Patient visited by Nyasia Pacheco PCA. ar3 15:35 PHOSPHOROUS LEVEL Sent. js13 15:35 MAGNESIUM LEVEL Sent. js13 15:35 FT4&TSH PANEL Sent. js13 16:01 The patient / caregiver is instructed regarding the plan of care and ED course. Placed js13 in gown. Bed in low position. Call light in reach. Side rails up X2. joint cutter on. Pulse ox on. NIBP on. 16:01 No procedures done that require assistance. js13 16:02 Patient visited by Keila Cali RN. js13 16:03 [facility] Payment Agreement was scanned into V[employer] and attached to record. b 16:10 Patient name changed from Cecy\S\Fanta\S\Weiskotten\S\ to Cecy\S\ \S\Weiskotten. EDMS 16:53 Patient visited by Keila Cali RN. js13 17:44 portable chest Returned. EDMS 17:50 Patient visited by Keila Cali RN. js13 18:09 Patient visited by Keila Cali RN. js13 19:24 Patient visited by Kasie Rodrigues PCA. macie 19:37 Attending Physician role handed off by Rosanna Ennis MD cs11 19:37 Tae Antonio DO is Attending Physician. cs11 19:56 Primary Nurse role handed off by Keila Cali,JAXON macie 20:38 Patient visited by Kasie Rodrigues PCA. macie 21:07 Patient visited by Kasie Rodrigues PCA. macie 21:07 EKG done. (by ED staff). Reviewed by Tae Antonio DO. macie 21:10 Patient visited by Keila Garcia RN. jo3 21:46 Magdiel Bacon is Referral Physician. cs11 21:53 Patient visited by Kasie Rodrigues PCA. macie 21:55 Discontinued lock intact, bleeding controlled, pressure dressing applied, No mcp redness/swelling at site. 10/30 13:07 ECG WITH READING ER PHYS Returned. EDMS 13:42 ECG WITH READING ER PHYS Returned. EDMS 13:42 EKG-ADULT Returned. EDMS 17:03 ECG/EKG was scanned into [employer] and attached to record. kf3 18:22 T-Sheet-- Draft Copy was scanned into [employer] and attached to record. klr Administered Medications: 10/29 15:23 CANCELLED (Other Intervention Used): NS 0.9% 500 ml IV at bolus once br1 15:35 Drug: Aspirin 324 mg [aspirin 81 mg chewable tablet (4 tabs)] Route: PO; js13 Order Results: Lab Order: B-Type Natiuretic Peptide; SPEC'M 10/29/16 15:26 Test: BRAIN NATRIURETIC PEPTIDE; Value: 57.4; Range: <100; Units: PG/ML; Status: F Lab Order: Basic Metabolic Profile; SPEC'M 10/29/16 15:26 Test: GLUCOSE, FASTING; Value: 90; Range: 70-105; Units: MG/DL; Status: F Test: BLOOD UREA NITROGEN; Value: 16; Range: 7-18; Units: MG/DL; Status: F Test: CREATININE FOR GFR; Value: 0.96; Range: 0.55-1.02; Units: MG/DL; Status: F Test: GLOMERULAR FILTRATION RATE; Value: > 60.0; Range: >58; Status: F Test: SODIUM LEVEL; Value: 144; Range: 136-145; Units: MEQ/L; Status: F Test: POTASSIUM SERUM; Value: 4.0; Range: 3.5-5.1; Units: MEQ/L; Status: F Test: CHLORIDE LEVEL; Value: 113; Range: 98-107; Abnormal: Above high normal; Units: MEQ/L; Status: F Test: CARBON DIOXIDE LEVEL; Value: 23; Range: 21-32; Units: MEQ/L; Status: F Test: ANION GAP; Value: 8; Range: 8-16; Units: MEQ/L; Status: F Test: CALCIUM LEVEL; Value: 8.5; Range: 8.5-10.1; Units: MG/DL; Status: F Test Note: ; Units are mL/min/1.73 m2 Chronic Kidney Disease Staging per NKF: Stage I & II GFR >=60 Normal to Mildly Decreased Stage III GFR 30-59 Moderately Decreased Stage IV GFR 15-29 Severely Decreased Stage V GFR <15 Very Little GFR Left ESRD GFR <15 on BOX BRANDER Lab Order: CBC with Diff; SPEC'M 10/29/16 15:26 Test: WHITE BLOOD COUNT; Value: 7.6; Range: 4.0-10.0; Units: K/mm3; Status: F Test: RED BLOOD COUNT; Value: 4.38; Range: 4.00-5.40; Units: M/mm3; Status: F Test: HEMOGLOBIN; Value: 13.7; Range: 12.0-16.0; Units: g/dl; Status: F Test: HEMATOCRIT; Value: 42.1; Range: 36.0-47.0; Units: %; Status: F Test: MEAN CORPUSCULAR VOLUME; Value: 96.0; Range: 80.0-96.0; Units: fl; Status: F Test: MEAN CORPUSCULAR HEMOGLOBIN; Value: 31.2; Range: 27.0-33.0; Units: pg; Status: F Test: MEAN CORPUSCULAR HGB CONC; Value: 32.5; Range: 32.0-36.5; Units: g/dl; Status: F Test: RED CELL DISTRIBUTION WIDTH; Value: 13.3; Range: 11.5-14.5; Units: %; Status: F Test: PLATELET COUNT, AUTOMATED; Value: 221; Range: 150-450; Units: k/mm3; Status: F Test: NEUTROPHILS %; Value: 57.1; Range: 36.0-66.0; Units: %; Status: F Test: LYMPH %; Value: 29.7; Range: 24.0-44.0; Units: %; Status: F Test: MONO %; Value: 5.0; Range: 0.0-5.0; Units: %; Status: F Test: EOS %; Value: 4.6; Range: 0.0-3.0; Abnormal: Above high normal; Units: %; Status: F Test: BASO %; Value: 2.0; Range: 0.0-1.0; Abnormal: Above high normal; Units: %; Status: F Test: LARGE UNSTAINED CELL %; Value: 1.6; Range: 0.0-4.0; Units: %; Status: F Test: NEUTROPHILS #; Value: 4.3; Range: 1.8-7.7; Units: K/mm3; Status: F Test: LYMPH #; Value: 2.4; Range: 1.5-4.5; Units: K/mm3; Status: F Test: MONO #; Value: 0.4; Range: 0.0-0.8; Units: K/mm3; Status: F Test: EOS #; Value: 0.4; Range: 0.0-0.50; Units: K/mm3; Status: F Test: BASO #; Value: 0.2; Range: 0.0-0.2; Units: K/mm3; Status: F Test: LARGE UNSTAINED CELL #; Value: 0.1; Range: 0.0-0.4; Units: K/mm3; Status: F Lab Order: Cardiac Injury Profile; SPEC'M 10/29/16 15:26 Test: CPK CREATINE PHOSPHOKINASE; Value: 64; Range: 26-192; Units: U/L; Status: F Test: CK-MB VALUE MASS; Value: 1.0; Range: 0.0-3.6; Units: NG/ML; Status: F Test: MB/CK RELATIVE INDEX; Value: 1.56; Range: < OR =4; Status: F Test Note: ; DIAGNOSIS CRITERIA MMB ng/ml Relative Index (RI) NON-AMI < or = 5 N/A STACK ZONE > 5 < or = 4 AMI > 5 > 4 Lab Order: Troponin; [facility] 10/29/16 15:26 Test: TROPONIN I; Value: < 0.02; Range: < 0.10; Units: NG/ML; Status: F Test Note: ; Troponin I Reference Interval for [employer] LOCI: 99th Percentile= 0.00-0.045 ng/ml Risk Stratification: <= 0.10 ng/ml Decreased Risk for Adverse Clinical Events. 0.10-1.50 ng/ml Increased Risk for Adverse Clinical Events. Evaluation of additional criterion and/or repeat testing in 2-6 hours is suggested to rule out myocardial damage. >= 1.50 ng/ml Indicative of Myocardial Injury. Lab Order: FT4&TSH PANEL; [facility] 10/29/16 15:26 Test: THYROID STIMULATING HORMONE; Value: 4.680; Range: 0.358-3.740; Abnormal: Above high normal; Units: uIU/ML; Status: F Test: FREE T4; Value: 0.80; Range: 0.76-1.46; Units: NG/DL; Status: F Lab Order: MAGNESIUM LEVEL; [facility] 10/29/16 15:26 Test: MAGNESIUM LEVEL; Value: 2.0; Range: 1.8-2.4; Units: MG/DL; Status: F Lab Order: PHOSPHOROUS LEVEL; [facility] 10/29/16 15:26 Test: PHOSPHORUS LEVEL; Value: 2.7; Range: 2.5-4.9; Units: MG/DL; Status: F Lab Order: CARDIAC MARKER PANEL; [facility] 10/29/16 20:53 Test: CPK CREATINE PHOSPHOKINASE; Value: 53; Range: 26-192; Units: U/L; Status: F Test: CK-MB VALUE MASS; Value: 1.0; Range: 0.0-3.6; Units: NG/ML; Status: F Test: MB/CK RELATIVE INDEX; Value: 1.88; Range: < OR =4; Status: F Test: TROPONIN I; Value: < 0.02; Range: < 0.10; Units: NG/ML; Status: F Test Note: ; DIAGNOSIS CRITERIA MMB ng/ml Relative Index (RI) NON-AMI < or = 5 N/A STACK ZONE > 5 < or = 4 AMI > 5 > 4 Radiology Order: EKG-ADULT Test: EKG-ADULT REASON FOR EXAMINATION: Chest Pain; Stationary ECG Study; [facility]; ; Test Date: 2016-10-29; Pat Name: [facility] Department:; Room: -; Gender: F Nurse First Assist: lenin; : 1965 Requested By: ROSANNA Blanco; Order Number: [id number] Reading MD: Nicole England; Measurements; Intervals [place]; Rate: 138 P: 59; ME: 88 QRS: -12; QRSD: 100 T: 57; QT: 270; QTc: 409; Interpretive Statements; NARROW COMPLEX TACHYCARDIA: ATRIAL FLUTTER, SINUS TACHYCARDIA WITH SHORT ME; INTERVAL, SVT; ABNORMAL RHYTHM ECG; ; Electronically Signed On 10-30-2016 13:13:26 EST by Nicole England; Radiology Order: portable chest Test: portable chest REASON FOR EXAMINATION: Chest Pain; Portable chest, single AP view, the patient upright:; ; There are no comparisons.; ; The lung mcnamara are clear. Cardiac size is normal. The hail, mediastinum, and; bony thorax are unremarkable.; ; Impression:; ; Essentially negative portable chest.; ; ; Signed by; Blanco Ramirez MD 10/29/2016 04:59 P; Radiology Order: ECG WITH READING ER PHYS Test: ECG WITH READING ER PHYS REASON FOR EXAMINATION: SOB,SVT; Stationary ECG Study; [facility]; ; Test Date: 2016-10-29; Pat Name: [facility] Department:; Room: -; Gender: F Nurse First Assist: adrianne; : 1965 Requested By: ROSANNA lBanco; Order Number: [id number] Reading MD: Nicole England; Measurements; Intervals [place]; Rate: 69 P: 59; ME: 173 QRS: -5; QRSD: 105 T: 32; QT: 363; QTc: 390; Interpretive Statements; SINUS RHYTHM; DECREASED RATE 10/29/16 15:53; Electronically Signed On 10-30-2016 13:11:51 EST by Nicole England; Outcome: 21:46 Discharge ordered by Provider. 11 21:56 Discharge Assessment: patient administered narcotics - no. The following High Risk [facility] Discharge criteria are identified: None. Discharged to home ambulatory, with significant other. Condition: stable. Discharge instructions given to patient, Instructed on discharge instructions, follow up and referral plans. Demonstrated understanding of instructions, Pt was receptive of discharge instructions/ teaching. No special radiology studies were completed. Property sent home with patient. 21:56 Patient left the ED. [facility] Signatures: Dispatcher [employer] EDArlene Sena RN RN mcp Helmerci, Jennifer,RN RN jo3 Yfn Chong, Reg Reg kf3 Rosanna Ennis MD MD br1 Whitney Thomason mt4 Nyasia Pacheco, IRON MELTER IRON MELTER ar3 Tahira LongoriaRN JAXON ld5 Keila Roberts, RN RN jc4 Kasie Rodrigues, IRON MELTER IRON MELTER macie Keila Cali,RN RN js13 Tae Antonio, DO cs11 Kimberli Tobin, IRON MELTER IRON MELTER rs6 Nathan Michaels,RN RN lea3 Aixa Dunn Kathie klr Corrections: (The following items were deleted from the chart) 15:32 15:27 FT4&TSH PANEL+LAB sent. 5 EDMS 15:32 15:27 PHOSPHOROUS LEVEL+LAB sent. 5 EDMS 15:32 15:27 MAGNESIUM LEVEL+LAB sent. [facility] EDMS 19:00 16:52 Cardiovascular: Rhythm is sinus rhythm Chest pain is denied js13 js13 19:00 17:48 Cardiovascular: Rhythm is sinus rhythm Chest pain is denied js13 js13 Chart Complete MTDD
== END 2016-10-29 21:56 | disposition home or self-care (01) ==
LOC: M ED 14:49
DX: R00.2 Palpitations (principal); R06.02 Shortness of breath; R01.1 Cardiac murmur, unspecified; Z79.899 Other long term (current) drug therapy; Z79.82 Long term (current) use of aspirin

== ENCOUNTER 2017-12-28 11:26 | Day surgery (SDC) | payer OTHER ==
[2017-12-28] MEDS ORDERED: LIDOCAINE 1% MDV 20ML VIAL SQ (11:30)
[2017-12-28] MEDS: LR 1,000 ML IV (12:45)
[2017-12-28] MEDS ORDERED: MIDAZOLAM INJ 2 MG/2 ML VIAL (J2250) As Ordered (12:49)
[2017-12-28] MEDS ORDERED: fentaNYL 100 MCG/2 ML INJECTION (J3010) As Ordered (12:50)
[2017-12-28] MEDS ORDERED: diphenhydrAMINE INJ 50MG/ML VIAL (J1200) As Ordered (14:03)
[2017-12-28] MEDS: LIDOCAINE 1% MDV 20ML VIAL As Ordered (14:18)
== END 2017-12-28 15:25 | disposition home or self-care (01) ==
LOC: M SDC 11:26
DX: I47.1 Supraventricular tachycardia (principal); R00.2 Palpitations; F32.9 Major depressive disorder, single episode, unspecified; E66.9 Obesity, unspecified; I27.0 Primary pulmonary hypertension; R94.31 Abnormal electrocardiogram [ECG] [EKG]; R07.9 Chest pain, unspecified; R01.1 Cardiac murmur, unspecified; K21.9 Gastro-esophageal reflux disease without esophagitis; D50.9 Iron deficiency anemia, unspecified; N39.3 Stress incontinence (female) (male); Z79.899 Other long term (current) drug therapy; Z78.0 Asymptomatic menopausal state
CPT/HCPCS: 33282

== ENCOUNTER → 2018-02-26 | Outpatient (CLI) | payer OTHER | LOC: M SLEEP 19:54 | DX: G47.30 Sleep apnea, unspecified (principal) | CPT/HCPCS: 95810 ==

== ENCOUNTER 2018-10-18 11:07 | Day surgery (SDC) | payer OTHER ==
[~2018-10-18] VITALS: Ht 177.8 cm; Wt 93.7 kg
[~2018-10-18 11:07] MED LIST: DILT180C43 PO; LIDOCAINE 1% MDV 20ML VIAL SQ PRN; LIDOCAINE 2% INJ 100 MG/5 ML SDV (FOR ANES.) As Ordered ONE; LR 1,000 ML IV ONE; MIDAZOLAM INJ 2 MG/2 ML VIAL (J2250) As Ordered ONE; ONDANSETRON 4MG/2ML VIAL (J2405) As Ordered ONE; PROPOFOL 200 MG/20 ML VIAL As Ordered ONE; fentaNYL 100 MCG/2 ML INJECTION (J3010) As Ordered ONE
[2018-10-18] MEDS ORDERED: LIDOCAINE 1% SDV INJ 30 ML VIAL As Ordered ONE (11:20)
[2018-10-18 13:00] VITALS: BP 132/90
[2018-10-18] MEDS ORDERED: LR 1,000 ML IV SCH (13:00)
[2018-10-18] MEDS ORDERED: ACETAMINOPHEN TAB 650MG DOSE (2X325MG) PO PRN (13:00)
--- NOTE | 2018-10-18 13:04 | RO ---
DATE OF PROCEDURE: 10/18/2018 PREOPERATIVE DIAGNOSIS: Implantable loop recorder in situ. POSTOPERATIVE DIAGNOSIS: Implantable loop recorder in situ. FINDINGS: Implantable loop recorder in situ. PROCEDURE PERFORMED: Explantation of old Medtronic LINQ implantable loop recorder. SURGEON: Magdiel Bacon MD LOADING MACHINE OPERATOR HELPER: None. ANESTHESIA: Lidocaine 1% local. SPECIMENS: Medtronic LINQ implantable loop recorder. ESTIMATED BLOOD LOSS: Less than 2 mL. No blood products replaced. No drains. No complications. PROCEDURE DESCRIPTION: The patient was prepped and draped over the region of the existing implantable loop recorder incision along the left parasternal border. Lidocaine 1% was used for local anesthetic. At the patient's request, no sedation was given. No IV pain medications were given at the patient's request. An incision over the existing ILR scar was made and extended a little bit more lateral. The incision was then dissected down to the level of the loop recorder. The loop recorder was then pulled from the pocket. Next, a #4-0 Biosyn suture was used to approximate the skin using it subcuticular with the ends of the stitch on both sides protruding from the skin a small distance from the ends of the incision on both sides. Next, two layers of DERMABOND was applied. The Biosyn suture was then removed entirely from the incision. Once the DERMABOND was dry, some Mastisol was placed above and below the incision on either side being careful not to get any of the Mastisol on the DERMABOND. Next, three half in Steri-Strips, which were cut in half, were placed perpendicular to the incision line. The patient tolerated the procedure well without any immediate complications.
== END 2018-10-18 13:10 | disposition home or self-care (01) ==
LOC: M SDC 11:07
PROVIDERS: ATTEND Internal Medicine Cardiovascular Disease
DX: Z45.09 Encounter for adjustment and management of other cardiac device (principal); R01.1 Cardiac murmur, unspecified; K21.9 Gastro-esophageal reflux disease without esophagitis; F32.9 Major depressive disorder, single episode, unspecified; D64.9 Anemia, unspecified
CPT/HCPCS: 33286; J0690

== ENCOUNTER → 2019-01-18 | Outpatient (REF) | payer OTHER ==
[~2019-01-18] MED LIST changes: -LIDOCAINE 1% MDV 20ML VIAL SQ PRN; -LIDOCAINE 2% INJ 100 MG/5 ML SDV (FOR ANES.) As Ordered ONE; -LR 1,000 ML IV ONE; -MIDAZOLAM INJ 2 MG/2 ML VIAL (J2250) As Ordered ONE; -ONDANSETRON 4MG/2ML VIAL (J2405) As Ordered ONE; -PROPOFOL 200 MG/20 ML VIAL As Ordered ONE; -fentaNYL 100 MCG/2 ML INJECTION (J3010) As Ordered ONE
== END ==
LOC: M LAB REF 12:26
PROVIDERS: ATTEND Nurse Practitioner Adult Health
DX: R00.0 Tachycardia, unspecified (principal)

== ENCOUNTER → 2019-05-17 | Outpatient (CLI) | payer OTHER ==
--- NOTE | 2019-05-18 09:59 | REP ---
LEFT FOOT, FOUR VIEWS: Four views of the left foot performed. There is a nondisplaced oblique fracture of the fifth proximal phalanx. No other acute fracture or dislocation is seen. Joint spaces are unremarkable. IMPRESSION: Nondisplaced fracture fifth proximal phalanx. Electronically Signed by Blanco Diane MD 05/20/2019 11:42 A
== END ==
LOC: M WUC 16:31
PROVIDERS: ATTEND Physician Assistant
DX: S90.32XA Contusion of left foot, initial encounter (principal)

== ENCOUNTER → 2020-04-02 | Outpatient (REF) | payer OTHER | LOC: M LAB REF 15:05 | PROVIDERS: ATTEND Radiology Diagnostic Radiology | DX: R92.1 Mammographic calcification found on diagnostic imaging of breast (principal) ==

== ENCOUNTER → 2020-11-13 | Outpatient (REF) | payer OTHER | LOC: M LAB REF 16:09 | PROVIDERS: ATTEND Internal Medicine | DX: M25.549 Pain in joints of unspecified hand (principal) ==

== ENCOUNTER → 2021-02-22 | Outpatient (CLI) | payer SELFPAY | LOC: M LABSMTC 10:06 | PROVIDERS: ATTEND Pediatrics | DX: Z20.822 Contact with and (suspected) exposure to COVID-19 (principal) ==

== ENCOUNTER → 2021-06-04 | Outpatient (REF) | payer OTHER ==
[2021-06-08 16:08] LABS: Lyme Disease IgG/IgM Antibodie <0.91 ISR (0.00-0.90); Lyme Disease IgM Ab Quantitati <0.80 index (0.00-0.79)
== END ==
LOC: M LAB REF 17:49
PROVIDERS: ATTEND Internal Medicine
DX: R53.83 Other fatigue (principal); R50.9 Fever, unspecified

== ENCOUNTER → 2021-06-08 | Outpatient (REF) | payer OTHER | LOC: M LAB REF 16:06 | PROVIDERS: ATTEND Internal Medicine | DX: R53.83 Other fatigue (principal); R50.9 Fever, unspecified ==

== ENCOUNTER → 2021-06-30 | Outpatient (CLI) | payer OTHER | LOC: M LAB 16:50 | PROVIDERS: ATTEND Internal Medicine | DX: R53.83 Other fatigue (principal); R50.9 Fever, unspecified ==

== ENCOUNTER → 2022-03-16 | Outpatient (CLI) | payer OTHER ==
[~2022-03-16] MED LIST changes: -DILT180C43 PO; +DILT180C95 PO
== END ==
LOC: M RAD 17:06
PROVIDERS: ATTEND Physician Assistant
DX: M79.641 Pain in right hand (principal); W22.09XA Striking against other stationary object, initial encounter; Y92.9 Unspecified place or not applicable; Y93.9 Activity, unspecified; Y99.9 Unspecified external cause status

== ENCOUNTER → 2024-03-27 | Outpatient (CLI) | payer OTHER | LOC: M RAD 17:05 | PROVIDERS: ATTEND Physician Assistant | DX: R07.9 Chest pain, unspecified (principal); R53.83 Other fatigue ==

== ENCOUNTER → 2024-07-23 | Outpatient (CLI) | payer OTHER | LOC: M EKG 11:25 | PROVIDERS: ATTEND Registered Nurse | DX: R00.2 Palpitations (principal) ==